=== PATIENT | female | born 1980 | race Caucasian/White ===

== ENCOUNTER → 2021-02-22 16:04 | Outpatient (CLI) | payer BC, SELFPAY ==
--- NOTE | ~2021-02-22 | MR_ITS ---
EXAMINATION: MR lower leg LT wo con DATE: 02/22/2021 17:54 INDICATION: Left lower leg stress fracture. TECHNIQUE: Magnetic resonance imaging (MRI) of the left lower leg was performed without intravenous c ontrast. Sequences included axial T1-weighted FSE and T2-weighted FS FSE and coronal and sagittal STI R FSE and T1-weighted FSE. COMPARISON: Left tibia and fibula radiographs 10/02/2012 FINDINGS: There is a skin marker medial to tibial midshaft. In this area, there is increased T2-weigh carlos signal intensity and slightly decreased T1-weighted signal intensity in the bone marrow of the ti bial diaphysis. There is abnormal signal intensity in the cortical bone posteriorly. No fracture line . The musculature demonstrates normal signal intensity. The neurovascular bundles are normal. IMPRESSION: 1. Medial tibial stress injury ([place] grade 4a). Reviewed, dictated and finalized at location A.
== END ==
PROVIDERS: Visit Provider Chiropractor
DX: S82.92XA Unspecified fracture of left lower leg, initial encounter for closed fracture (principal); X58.XXXA Exposure to other specified factors, initial encounter
CPT/HCPCS: 73718

== ENCOUNTER → 2021-07-25 15:09 | Outpatient (REF) | payer BC, SELFPAY | LOC: ANHLAB 15:09 | PROVIDERS: PCP Family Medicine; Visit Provider Nurse Practitioner | DX: D23.5 Other benign neoplasm of skin of trunk (principal); D22.5 Melanocytic nevi of trunk; D28.0 Benign neoplasm of vulva | CPT/HCPCS: 88305 ==

== ENCOUNTER → 2023-10-17 07:53 | Outpatient (CLI) | payer OTHER, SELFPAY ==
--- NOTE | ~2023-10-17 | MMUS_ITS ---
EXAMINATION: MM diag lin implant BI w consuelo, US breast RT limited HISTORY: Palpable lumps in the upper outer and lower inner quadrants of the right breast. TECHNIQUE: Craniocaudal, mediolateral, and mediolateral oblique 3-D tomosynthesis images with implant displacement of the breasts were performed and synthetic 2-D images were generated. Craniocaudal, m ediolateral oblique, and mediolateral views of the breasts without implant displacement were obtained using full field digital mammography. CAD analysis was submitted and interpreted. High resolution [employer] right breast ultrasound was performed. COMPARISON: 05/02/2017 BREAST PARENCHYMAL COMPOSITION: The breasts are extremely dense, which lowers the sensitivity of mamm ography. FINDINGS: MAMMOGRAPHIC FINDINGS: No suspicious mass, calcification, or architectural distortion are identified in either breast to sug gest malignancy. There has been no suspicious interval change. No mammographic correlate is identifie d for the reported palpable abnormalities of the right breast. ULTRASOUND: There is no evidence of focal abnormal solid or cystic lesion in the vicinity of the reported palpabl e abnormalities of the right breast. IMPRESSION: 1. No specific mammographic or sonographic correlate is identified for the reported palpable abnormal ities of concern in the right breast. Further evaluation at this time should be based on clinical ass essment. Continued follow-up physical examination is recommended. 2. Recommend routine screening mammography in one year. BI-RADS Category 1: Negative Reviewed, dictated and finalized at location A. [employer] IMPRESSION: 1. No specific mammographic or sonographic correlate is identified for the repo rted palpable abnormalities of concern in the right breast. Further evaluation at this time should be based on clinical assessment. Continued follow-up physic al examination is recommended. 2. Recommend routine screening mammography in one year. BI-RADS Category 1: Negative
== END ==
DX: N63.11 Unspecified lump in the right breast, upper outer quadrant (principal)
CPT/HCPCS: 76642; 77062; 77066; G0279